=== PATIENT | male | born 1950 | race Caucasian/White ===

== ENCOUNTER 2018-05-13 10:49 | Inpatient (IN) | END 2018-05-15 12:40 | disposition home or self-care (01) | DRG 65 ==

== ENCOUNTER 2018-09-26 13:50 | Observation (INO) | payer SELFPAY ==
[~2018-09-26] VITALS: Ht 167.6 cm; Wt 67.0 kg
[~2018-09-26 13:50] MED LIST: ASPI-831 PO; ATOR-2 PO; LISI1TAB4 PO; WORK NOTE
[2018-09-26] MEDS ORDERED: ONDANSETRON 4 MG INJ IV PRN ×2 (16:30→18:30)
[2018-09-26] MEDS ORDERED: ACETAMINOPHEN 325 MG TAB PO PRN ×2 (16:30→18:30)
[2018-09-26] MEDS ORDERED: LISI-471 PO (16:44)
[2018-09-26] MEDS ORDERED: ATOR-2 PO (16:44)
[2018-09-26] MEDS ORDERED: HYDR25TA6 PO (16:44)
[2018-09-26] MEDS ORDERED: ASPI-817 PO (16:46)
--- NOTE | 2018-09-26 17:07 | ERD ---
ER Documentation Chief Complaint Chief Complaint Dizziness, L-sided weakness X 3 days HPI This is a 67-year-old male with a history of hypertension and high cholesterol and a previous cerebrovascular accident several years prior to arrival where he developed residual weakness of his left upper and lower extremity. However over the years the patient has had significant improvement of his weakness as he is now able to grasp objects with his left hand and ambulate without any difficulty. He does have a residual left-sided facial droop from his previous CVA according to his son. However 3 days prior to arrival his son indicates that he noticed he was very unsteady in his gait. The patient indicates that for the past 3 days he is also felt very dizzy and lightheaded but denies any syncope or near syncope episode. Indicated that the facial droop on the left had side had worsened. He is not complaining of a headache. He denied any chest pain. He had no shortness of breath at rest or exertion. His symptoms have not worsened but they have not improved and therefore he was brought to the emergency department to be further evaluated. ROS All systems reviewed and are negative except as per history of present illness. Medications Home Meds Active Scripts Atorvastatin* (Atorvastatin*) 80 Mg Tablet, 80 MG PO HS, #30 TAB Prov:REYNA HOOVER NP 05/15/18 Reported Medications Aspirin* (Aspirin* EC) 81 Mg Tablet.dr, 81 MG PO DAILY, TAB 09/26/18 Atorvastatin* (Atorvastatin*) 80 Mg Tablet, 80 MG PO QHS, #30 TAB 09/26/18 Lisinopril* (Lisinopril*) 20 Mg Tablet, 20 MG PO DAILY, #30 TAB 09/26/18 Hydrochlorothiazide* (Hydrochlorothiazide*) 25 Mg Tab, 25 MG PO DAILY, #30 TAB 09/26/18 Discontinued Reported Medications Lisinopril/Hydrochlorothiazide (Lisinopril-Hctz 10-12.5 mg Tab) 1 Each Tablet, 1 EACH PO DAILY, TAB 05/13/18 Discontinued Scripts [Work Note] No Conflict Check Please excuse Mr. Pillo dotson attending work from 05/13/2018 to 05/20/2018 due to his medical condition. Thank You Prov:REYNA HOOVER NP 05/15/18 Aspirin (Aspirin) 81 Mg Chew, 81 MG PO DAILY, #30 TAB Prov:REYNA HOOVER NP 05/15/18 Allergies Allergies: Coded Allergies: No Known Allergy (Unverified , 09/26/18) PMhx/Soc History of Surgery: No Anesthesia Reaction: No Hx Neurological Disorder: Yes (LEFT SIDED WEAKNESS/ SLIGHT LEFT FACIAL DROOP) Hx Respiratory Disorders: No Hx Cardiac Disorders: Yes (HTN) Hx Psychiatric Problems: No Hx Miscellaneous Medical Probl: Yes (HTN) Hx Alcohol Use: No Hx Substance Use: No Hx Tobacco Use: Yes Smoking Status: Former smoker Physical Exam Vitals Vital Signs Date Temp Pulse Resp B/P (MAP) Pulse Ox O2 O2 Flow FiO2 Time Delivery Rate 09/26/18 67 18 138/74 99 Room Air 15:23 (95) 09/26/18 Nasal 2 14:36 Cannula 09/26/18 97.7 67 18 154/81 99 13:55 (105) Physical Exam Constitutional:Well-developed. Well-nourished. HEENT:Normocephalic. Atraumatic.Pupils were equal round reactive to light. Moist mucous membranes.No tonsillar exudates. Left subconjunctival hemorrhage. Neck: No nuchal rigidity. No lymphadenopathy. No posterior cervical spine tenderness or step-offs. Respiratory: Not using accessory muscles of respiration.Lungs were clear to auscultation bilaterally. No rhonchi. No rales. No wheezing. Cardiovascular: Regular rate regular rhythm.No murmurs. No rubs were appreciated.S1, S2 normal. Distal pulses are palpable 2+ bilaterally. GI: Abdomen was soft. Nontender. Non Distended. No pulsatile abdominal masses or bruits. No rebound. No guarding. Bowel sounds were present and normal. Muscle skeletal: Full range of motion of both the upper and lower extremities bilaterally.Normal muscle tone.No assymetrical calf tenderness or swelling. Skin: No petechia, no purpura. No lesions on the palms or the soles of the feet. No maculopapular rash. NEURO: Patient was alert, awake, orientated x3.Left-sided facial droop. Gait observed and normal with no ataxia.Speech had regular rate and rhythm. No focal neurological deficits. No pronator drift. Romberg sign negative. Result Diagram: 09/26/18 1418 09/26/18 1418 Results 24 hrs Laboratory Tests Test 09/26/18 14:13 09/26/18 14:18 Urine Color YELLOW Urine Clarity CLEAR Urine pH 7.0 Urine Specific [place] 1.018 Urine Ketones NEGATIVE mg/dL Urine Nitrite NEGATIVE mg/dL Urine Bilirubin NEGATIVE mg/dL Urine Urobilinogen NEGATIVE mg/dL Urine Leukocyte Esterase NEGATIVE Josh/ul Urine Microscopic RBC 9 /HPF Urine Microscopic WBC 0 /HPF Urine Hemoglobin 2+ mg/dL Urine Glucose NEGATIVE mg/dL Urine Total Protein NEGATIVE mg/dl Urine Opiates Screen Negative Urine Barbiturates Negative Urine Amphetamines Screen Negative Urine Benzodiazepines Screen Negative Urine Cocaine Screen Negative Urine Cannabinoids Negative White Blood Count 9.6 10^3/ul Red Blood Count 4.18 10^6/ul Hemoglobin 12.2 g/dl Hematocrit 37.4 % Mean Corpuscular Volume 89.5 fl Mean Corpuscular Hemoglobin 29.2 pg Mean Corpuscular Hemoglobin Concent 32.6 g/dl Red Cell Distribution Width 13.4 % Platelet Count 319 10^3/UL Mean Platelet Volume 9.7 fl Immature Granulocytes % 0.300 % Neutrophils % 54.7 % Lymphocytes % 28.8 % Monocytes % 8.2 % Eosinophils % 7.6 % Basophils % 0.4 % Nucleated Red Blood Cells % 0.0 /100WBC Immature Granulocytes # 0.030 10^3/ul Neutrophils # 5.2 10^3/ul Lymphocytes # 2.8 10^3/ul Monocytes # 0.8 10^3/ul Eosinophils # 0.7 10^3/ul Basophils # 0.0 10^3/ul Nucleated Red Blood Cells # 0.0 10^3/ul Prothrombin Time 12.2 Sec Prothrombin Time Ratio 1.0 INR International Normalized Ratio 0.89 Activated Partial Thromboplast Time 28.2 Sec Sodium Level 143 mmol/L Potassium Level 3.9 mmol/L Chloride Level 99 mmol/L Carbon Dioxide Level 33 mmol/L Anion Gap 11 Blood Urea Nitrogen 32 mg/dl Creatinine 1.14 mg/dl Est Glomerular Filtrat Rate mL/min > 60 mL/min Glucose Level 129 mg/dl Hemoglobin A1c 5.8 % Calcium Level 9.6 mg/dl Total Bilirubin 0.2 mg/dl Direct Bilirubin 0.00 mg/dl Indirect Bilirubin 0.2 mg/dl Aspartate Amino Transf (AST/SGOT) 34 IU/L Alanine Aminotransferase (ALT/SGPT) 35 IU/L Alkaline Phosphatase 80 IU/L Creatine Kinase 105 IU/L Creatine Kinase Index 1.1 Creatinine Kinase MB (Mass) 1.16 ng/ml Troponin I < 0.012 ng/ml Total Protein 7.8 g/dl Albumin 4.4 g/dl Globulin 3.40 g/dl Albumin/Globulin Ratio 1.29 Triglycerides Level 111 mg/dl Cholesterol Level 146 mg/dl LDL Cholesterol, Calculated 70 mg/dl HDL Cholesterol 54 mg/dl Cholesterol/HDL Ratio 2.7 RATIO Current Medications Medications Dose Sig/Celestino Start Time Status Last (Trade) Ordered Route PRN Stop Time Admin Dose Reason Admin Ondansetron 4 mg ER BRIDGE 09/26/18 HCl (Zofran PRN IV 16:30 09/27/18 Inj) NAUSEA/VOMITI 16:29 NG 650 mg ER BRIDGE 09/26/18 Acetaminophen PRN PO 16:30 09/27/18 (Tylenol .MILD PAIN 16:29 Tab) 1-3 OR TEMP Procedures/MDM This patient was seen and evaluated by myself. The patient presented to the emergency department complaining of dizziness. My differential diagnosis included but was not limited to hypovolemia, myocardial infarction, pulmonary embolism, hypoglycemia, hypoxia, anemia, vasovagal episode, hypothyroidism, a nxiety, peripheral or central vertigo. The patient was placed on a court recording monitor, continuous pulse oximetry and IV access established by nursing staff. 12 Lead EKG tracing ordered and reviewed by myself showed: Normal sinus rhythm of 63 bpm and no arrhythmia. CT interval normal. QRS duration normal. No ST segment elevation No ST segment depression. No changes consistent with acute ischemia. I obtained a CT scan of the patient's head and there is no intracerebral hemorrhage mass-effect or midline shift. There is a chronic infarct posterior limb right internal capsule. Chest radiograph was performed there is no pneumonia or pneumothorax. The patient will be admitted for observation for further evaluation into his symptoms. The patient is not a TPA candidate given that his symptoms have been present for over 3 days. He will be admitted to the hospitalist. He will go to the telemetry service. Departure Diagnosis: Primary Impression: Dizziness Additional Impression: Facial droop Condition: BALJEET Armenta MD Sep 26, 2018 17:07
[2018-09-26 17:30] VITALS: BP 165/77; PULSE 60; RESP 20
[2018-09-26 18:28] VITALS: Ht 167.6 cm; Wt 67.0 kg
[2018-09-26] MEDS ORDERED: DOCUSATE SODIUM 100 MG CAP PO PRN (18:30)
[2018-09-26] MEDS ORDERED: HYDROCODONE/APAP (5/325) TAB PO PRN (18:30)
[2018-09-26] MEDS ORDERED: morphine 2 MG INJ IV PRN (18:30)
[2018-09-26] MEDS ORDERED: ZOLPIDEM 5 MG TAB PO PRN (18:30)
[2018-09-26] MEDS ORDERED: NACL 0.9% 3 ML SYG IV SCH (18:30)
[2018-09-26 20:08] VITALS: BP 136/63; PULSE 63; RESP 18
[2018-09-26] MEDS: ATORVASTATIN 80 MG TAB PO SCH (20:16)
[2018-09-27 02:00] VITALS: BP 129/61; PULSE 60; RESP 18
--- NOTE | 2018-09-27 05:02 | HP ---
Date/Time of Note Date/Time of Note DATE: 09/27/18 TIME: 04:55 Assessment/Plan VTE Prophylaxis Risk score (from [facility] [place])>0 risk: 5 SCD applied (from [facility] [place]): Yes Pharmacological prophylaxis: LMWH Lines/Catheters IV Catheter Type (from [facility]): Saline Lock Urinary Cath still in place: No Assessment/Plan Assessment/Plan 1. Rule out CVA -Patient was diagnosed with CVA 4 months ago -Head CT without acute findings -Follow-up MRI of the brain -Continue aspirin and statin -PT and speech/swallow eval -Consider neurology consult in a.m. 2. History of CVA, diagnosed 4 months ago: See #1 3. Hypertension: BP is in acceptable range 4. Dyslipidemia: Continue statin Result Diagram: 09/26/18 1418 09/26/18 1418 Results 24hrs Laboratory Tests Test 09/26/18 14:13 09/26/18 14:18 Urine Color YELLOW Urine Clarity CLEAR Urine pH 7.0 Urine Specific [place] 1.018 Urine Ketones NEGATIVE Urine Nitrite NEGATIVE Urine Bilirubin NEGATIVE Urine Urobilinogen NEGATIVE Urine Leukocyte Esterase NEGATIVE Urine Microscopic RBC 9 H Urine Microscopic WBC 0 Urine Hemoglobin 2+ H Urine Glucose NEGATIVE Urine Total Protein NEGATIVE Urine Opiates Screen Negative Urine Barbiturates Negative Urine Amphetamines Screen Negative Urine Benzodiazepines Screen Negative Urine Cocaine Screen Negative Urine Cannabinoids Negative White Blood Count 9.6 Red Blood Count 4.18 L Hemoglobin 12.2 L Hematocrit 37.4 L Mean Corpuscular Volume 89.5 Mean Corpuscular Hemoglobin 29.2 Mean Corpuscular Hemoglobin Concent 32.6 Red Cell Distribution Width 13.4 Platelet Count 319 Mean Platelet Volume 9.7 Immature Granulocytes % 0.300 Neutrophils % 54.7 Lymphocytes % 28.8 Monocytes % 8.2 Eosinophils % 7.6 H Basophils % 0.4 Nucleated Red Blood Cells % 0.0 Immature Granulocytes # 0.030 Neutrophils # 5.2 Lymphocytes # 2.8 Monocytes # 0.8 Eosinophils # 0.7 H Basophils # 0.0 Nucleated Red Blood Cells # 0.0 Prothrombin Time 12.2 Prothrombin Time Ratio 1.0 INR International Normalized Ratio 0.89 Activated Partial Thromboplast Time 28.2 Sodium Level 143 Potassium Level 3.9 Chloride Level 99 Carbon Dioxide Level 33 H Anion Gap 11 Blood Urea Nitrogen 32 H Creatinine 1.14 Est Glomerular Filtrat Rate mL/min > 60 Glucose Level 129 Hemoglobin A1c 5.8 Calcium Level 9.6 Total Bilirubin 0.2 Direct Bilirubin 0.00 Indirect Bilirubin 0.2 Aspartate Amino Transf (AST/SGOT) 34 Alanine Aminotransferase (ALT/SGPT) 35 Alkaline Phosphatase 80 Creatine Kinase 105 Creatine Kinase Index 1.1 Creatinine Kinase MB (Mass) 1.16 Troponin I < 0.012 Total Protein 7.8 Albumin 4.4 Globulin 3.40 H Albumin/Globulin Ratio 1.29 Triglycerides Level 111 Cholesterol Level 146 LDL Cholesterol, Calculated 70 HDL Cholesterol 54 Cholesterol/HDL Ratio 2.7 HPI/ROS Admit Date/Time Admit Date/Time Sep 26, 2018 at 16:06 Hx of Present Illness This is a 67-year-old male with a history of hypertension, dyslipidemia, Patient presents the ER complaining of lightheadedness/dizziness. He also reported left-sided weakness, but this seems chronic since last CVA. About 4 months ago, patient was diagnosed with CVA after he presented with left-sided weakness and left facial droop. Currently he denies facial droop or slurred speech. Also denied seizure-like activity. When he presented to ER, vitals were within acceptable range. Head CT without acute findings. Basic labs within acceptable range. PMH/Family/Social Past Medical History Medical History: other (See HPI) Medications Current Medications IV Flush (NS 3 ml) 3 ml PER PROTOCOL IV ; Start 09/26/18 at 18:30 Ondansetron HCl (Zofran Inj) 4 mg Q6H PRN IV NAUSEA/VOMITING; Start 09/26/18 at 18:30 Acetaminophen (Tylenol Tab) 650 mg Q6H PRN PO .PAIN 1-3 OR TEMP; Start 09/26/18 at 18:30 Acetaminophen/ Hydrocodone Bitart ([place] (5/325)) 1 tab Q6H PRN PO .MOD PAIN 4- 6; Start 09/26/18 at 18:30 Morphine Sulfate (morphine) 2 mg Q4H PRN IV .SEVERE PAIN 7-10; Start 09/26/18 at 18:30 Docusate Sodium (Colace) 100 mg Q12H PRN PO .CONSTIPATION; Start 09/26/18 at 18:30 Zolpidem Tartrate (Ambien) 5 mg QHS PRN PO .INSOMNIA; Start 09/26/18 at 18:30 Enoxaparin Sodium (Lovenox) 40 mg DAILY SC ; Start 09/27/18 at 09:00 Aspirin (Halfprin) 81 mg DAILY PO ; Start 09/27/18 at 09:00 Atorvastatin Calcium (Lipitor) 80 mg HS PO Last administered on 09/26/18at 20:16; Admin Dose 80 MG; Start 09/26/18 at 21:00 Hydrochlorothiazide (Hydrochlorothiazide) 25 mg DAILY PO ; Start 09/27/18 at 09:00 Lisinopril (Zestril) 20 mg DAILY PO ; Start 09/27/18 at 09:00 Coded Allergies: No Known Allergy (Unverified , 09/26/18) Past Surgical History Past Surgical Hx: other (See HPI) Family History Significant Family History: no pertinent family hx Social History Alcohol Use: none Smoking Status: Former smoker Drug Use: none Exam/Review of Systems Vital Signs Vitals Vital Signs Date Temp Pulse Resp B/P (MAP) Pulse Ox O2 O2 Flow FiO2 Time Delivery Rate 09/27/18 98.6 60 18 129/61 99 Room Air 02:00 (83) 09/26/18 2 14:36 Exam Constitutional: other (No acute distress) Head: normocephalic, atraumatic Eyes: PERRL Respiratory: clear to auscultation, normal air movement Cardiovascular: regular rate and rhythm, nl pulses Gastrointestinal: soft, non-tender Extremities: normal pulses Neurological: nl mental status, nl speech, nl strength BRENNEN PADILLA MD Sep 27, 2018 05:02
[2018-09-27 07:36] VITALS: BP 133/69; PULSE 50; RESP 20
[2018-09-27] MEDS: ASPIRIN (EC) 81 MG TAB PO SCH (08:47)
[2018-09-27] MEDS: LISINOPRIL 20 MG TAB PO SCH (08:48)
[2018-09-27] MEDS: HYDROCHLOROTHIAZIDE 25 MG TAB PO SCH (08:48)
[2018-09-27] MEDS: ENOXAPARIN 40 MG/0.4 ML SYG SC SCH (08:50)
[2018-09-27 13:52] VITALS: BP 114/62; PULSE 54; RESP 20
[2018-09-27] MEDS ORDERED: morphine LIQ (10 MG/5 ML) CUP PO PRN (15:30)
--- NOTE | 2018-09-27 17:51 | PN ---
Date/Time of Note Date/Time of Note DATE: 09/27/18 TIME: 17:49 Assessment/Plan VTE Prophylaxis Risk score (from Ns)>0 risk: 5 SCD applied (from Nsg): Yes Pharmacological prophylaxis: LMWH Lines/Catheters IV Catheter Type (from Nrs): Saline Lock Urinary Cath still in place: No Assessment/Plan Hospital Course SUBJECTIVE: Denies any complaints. OBJECTIVE: Physical Exam General: Adequately build 67 year-old male lying in bed in no apparent distress. HEENT: Normocephalic, atraumatic. Eyes: Anicteric sclerae, conjunctivae clear. ENT: Nasal septum midline, oral mucosa moist. Neck supple, no JVD noticed. Respiratory: Bilaterally clear breath sounds. No use of accessory muscles of respiration. No adventitious breath sounds. Cardiovascular: S1, S2 heard. No murmurs or gallops. Abdomen: Soft, nontender, and nondistended. Bowel sounds positive in all 4 quadrants. Genitourinary: Deferred. Extremities: No cyanosis, no clubbing, no edema. Peripheral pulses palpable. Neurologic: Cranial nerves II through XII grossly intact. The patient is awake, alert, and oriented. Skin: Normal skin turgor. No skin rashes. Labs & Vitals per chart ASSESSMENT & PLAN 67-year-old male with comorbidities including acute lacunar infarct of the right internal capsule in April 2018, 4 mm ACOM region aneurysm, dyslipidemia, hypertension, and tobacco use (Quit since April 2018). The patient came to the emergency room with chief complaint of left-sided weakness times 3 days. The patient was admitted to inpatient setting for further treatment and skyler luation. 1. Left-sided weakness. -Brain CT scan showing chronic infarct of the posterior limb of right internal capsule. -Pending brain MRI. -Continue aspirin and statins. 2. Hypertension. -On antihypertensives (left-sided weakness has been > 48 hours). 3. Dyslipidemia. -Continue statins. 4. Prediabetes -Hemoglobin A1c 5.9. -Monitor glycemic trends. 5. Fluids, electrolytes, and nutrition. -Low-cholesterol diet. 6. DVT prophylaxis -Subcutaneous Lovenox. 7. Plan. -Continue inpatient monitoring. -Await brain MRI. The patient was seen in collaboration with Dr. Mazariegos. Result Diagram: 09/27/18 0542 09/27/18 0542 Results 24hrs Laboratory Tests Test 09/27/18 05:42 White Blood Count 9.2 Red Blood Count 4.10 L Hemoglobin 11.8 L Hematocrit 36.4 L Mean Corpuscular Volume 88.8 Mean Corpuscular Hemoglobin 28.8 L Mean Corpuscular Hemoglobin Concent 32.4 Red Cell Distribution Width 13.6 Platelet Count 273 Mean Platelet Volume 10.1 Immature Granulocytes % 0.300 Neutrophils % 55.8 Lymphocytes % 26.4 Monocytes % 8.1 Eosinophils % 9.0 H Basophils % 0.4 Nucleated Red Blood Cells % 0.0 Immature Granulocytes # 0.030 Neutrophils # 5.1 Lymphocytes # 2.4 Monocytes # 0.7 Eosinophils # 0.8 H Basophils # 0.0 Nucleated Red Blood Cells # 0.0 Sodium Level 141 Potassium Level 3.9 Chloride Level 105 Carbon Dioxide Level 29 Anion Gap 7 Blood Urea Nitrogen 29 H Creatinine 0.98 Est Glomerular Filtrat Rate mL/min > 60 Glucose Level 98 Hemoglobin A1c 5.9 Calcium Level 9.3 Phosphorus Level 4.3 Magnesium Level 2.3 Triglycerides Level 90 Cholesterol Level 137 LDL Cholesterol, Calculated 71 HDL Cholesterol 48 Cholesterol/HDL Ratio 2.8 Exam/Review of Systems Exam Vitals Vital Signs Date Temp Pulse Resp B/P (MAP) Pulse Ox O2 O2 Flow FiO2 Time Delivery Rate 09/27/18 97.5 54 20 114/62 98 13:52 (79) 09/27/18 Room Air 02:00 09/26/18 2 14:36 Results Results 24hrs Laboratory Tests Test 09/27/18 05:42 White Blood Count 9.2 Red Blood Count 4.10 L Hemoglobin 11.8 L Hematocrit 36.4 L Mean Corpuscular Volume 88.8 Mean Corpuscular Hemoglobin 28.8 L Mean Corpuscular Hemoglobin Concent 32.4 Red Cell Distribution Width 13.6 Platelet Count 273 Mean Platelet Volume 10.1 Immature Granulocytes % 0.300 Neutrophils % 55.8 Lymphocytes % 26.4 Monocytes % 8.1 Eosinophils % 9.0 H Basophils % 0.4 Nucleated Red Blood Cells % 0.0 Immature Granulocytes # 0.030 Neutrophils # 5.1 Lymphocytes # 2.4 Monocytes # 0.7 Eosinophils # 0.8 H Basophils # 0.0 Nucleated Red Blood Cells # 0.0 Sodium Level 141 Potassium Level 3.9 Chloride Level 105 Carbon Dioxide Level 29 Anion Gap 7 Blood Urea Nitrogen 29 H Creatinine 0.98 Est Glomerular Filtrat Rate mL/min > 60 Glucose Level 98 Hemoglobin A1c 5.9 Calcium Level 9.3 Phosphorus Level 4.3 Magnesium Level 2.3 Triglycerides Level 90 Cholesterol Level 137 LDL Cholesterol, Calculated 71 HDL Cholesterol 48 Cholesterol/HDL Ratio 2.8 Medications Medication Current Medications IV Flush (NS 3 ml) 3 ml PER PROTOCOL IV ; Start 09/26/18 at 18:30 Ondansetron HCl (Zofran Inj) 4 mg Q6H PRN IV NAUSEA/VOMITING; Start 09/26/18 at 18:30 Acetaminophen (Tylenol Tab) 650 mg Q6H PRN PO .PAIN 1-3 OR TEMP; Start 09/26/18 at 18:30 Acetaminophen/ Hydrocodone Bitart ([place] (5/325)) 1 tab Q6H PRN PO .MOD PAIN 4- 6; Start 09/26/18 at 18:30 Docusate Sodium (Colace) 100 mg Q12H PRN PO .CONSTIPATION; Start 09/26/18 at 18:30 Zolpidem Tartrate (Ambien) 5 mg QHS PRN PO .INSOMNIA; Start 09/26/18 at 18:30 Enoxaparin Sodium (Lovenox) 40 mg DAILY SC Last administered on 09/27/18 08:50; Admin Dose 40 MG; Start 09/27/18 at 09:00 Aspirin (Halfprin) 81 mg DAILY PO Last administered on 09/27/18 08:47; Admin Dose 81 MG; Start 09/27/18 at 09:00 Atorvastatin Calcium (Lipitor) 80 mg HS PO Last administered on 09/26/18 20:16; Admin Dose 80 MG; Start 09/26/18 at 21:00 Hydrochlorothiazide (Hydrochlorothiazide) 25 mg DAILY PO Last administered on 09/27/18 08:48; Admin Dose 25 MG; Start 09/27/18 at 09:00 Lisinopril (Zestril) 20 mg DAILY PO Last administered on 09/27/18 08:48; Admin Dose 20 MG; Start 09/27/18 at 09:00 Morphine Sulfate (morphine) 6 mg Q4H PRN PO SEVERE PAIN LEVEL 7-10; Start 09/27/18 at 15:30 ARACELI MANRIQUEZ NP Sep 27, 2018 17:51
[2018-09-27 19:36] VITALS: BP 132/61; PULSE 55; RESP 18
[2018-09-27] MEDS: ATORVASTATIN 80 MG TAB PO SCH (20:59)
[2018-09-28 01:55] VITALS: BP 111/56; PULSE 55; RESP 18
[2018-09-28 07:24] VITALS: BP 129/64; PULSE 59; RESP 20
[2018-09-28] MEDS: ASPIRIN (EC) 81 MG TAB PO SCH (09:02)
[2018-09-28] MEDS: LISINOPRIL 20 MG TAB PO SCH (09:03)
[2018-09-28] MEDS: HYDROCHLOROTHIAZIDE 25 MG TAB PO SCH (09:04)
[2018-09-28] MEDS: ENOXAPARIN 40 MG/0.4 ML SYG SC SCH (09:08)
[2018-09-28] MEDS ORDERED: POTASSIUM CHLORIDE (SR) 20 MEQ TAB PO STA (10:12)
--- NOTE | 2018-09-28 10:18 | DS ---
Date/Time of Note Date/Time of Note DATE: 09/28/18 TIME: 10:16 Discharge Summary Admission/Discharge Info Admit Date/Time Sep 26, 2018 at 16:06 Discharge Date/Time Discharge Diagnosis 1. 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 2. Hypertension. 3. Dyslipidemia. 4. Prediabetes. Hemoglobin A1c 5.9. Patient Condition: Stable Procedures Brain CT IMPRESSION: No intracranial hemorrhage, mass or evidence of acute transcortical infarct. Chronic infarct posterior limb right internal capsule. Mild age-appropriate atrophy. Mild white matter disease compatible with chronic small vessel ischemia. Brain MRI IMPRESSION: 1. Mild diffuse atrophy. 2. Microangiopathic ischemic changes. 3. Old lacunar infarct posterior limb right internal capsule. 4. Mild mucosal thickening paranasal sinuses with minimal dependent air-fluid level right sphenoid sinus. Hx of Present Illness This is a 67-year-old male with comorbidities including acute lacunar infarct of the right internal capsule in April 2018, 4 mm ACOM region aneurysm, dyslipidemia, hypertension, and tobacco use (quit since April 2018). The patient came to the emergency room with chief complaint of left-sided weakness times 3 days. The patient was admitted to inpatient setting for further treatment and evaluation. Hospital Course The patient was admitted to inpatient setting. The patient's brain CT scan was negative for any acute stroke. The patient underwent a brain MRI that was also negative for any acute stroke. Meanwhile, the patient's left-sided weakness has improved significantly. The patient was seen and evaluated by speech therapy and physical therapy, who recommended no skilled therapy needs. The patient was ruled out for any underlying acute stroke. The patient was maintained on antihypertensives for his underlying hypertension. No permissive hypertension was provided since the patient's left-sided weakness started more than 48 hours before the patient was evaluated in the emergency room. The patient was maintained on aspirin and statins. The patient was noticed to have prediabetes with a hemoglobin A1c of 5.9. The patient's random blood sugars were within normal limits. The patient had a stable hospital course. The patient is stable to be discharged home, to be followed up with outpatient primary care provider. Discharge Instructions 1. Resume home medications. 2. Follow a low-cholesterol, low carbohydrate diet. 3. Resume activities as tolerated 4. Follow-up with your primary care physician in 2 weeks. If you do not have a primary care physician, please call Dr. Jeff Rolon's office. 5. Please go to the nearest emergency room if you have any chest pain, sudden onset of focal weakness, speech disturbances, or any other unusual signs/symptoms. The patient verbalized understanding of his discharge instructions. The patient was seen in collaboration with Dr. Mazariegos. Home Meds Active Scripts Atorvastatin* (Atorvastatin*) 80 Mg Tablet, 80 MG PO HS, #30 TAB Prov:REYNA HOOVER NP 05/15/18 Reported Medications Aspirin* (Aspirin* EC) 81 Mg Tablet.dr, 81 MG PO DAILY, TAB 09/26/18 Lisinopril* (Lisinopril*) 20 Mg Tablet, 20 MG PO DAILY, #30 TAB 09/26/18 Hydrochlorothiazide* (Hydrochlorothiazide*) 25 Mg Tab, 25 MG PO DAILY, #30 TAB 09/26/18 Discontinued Reported Medications Atorvastatin* (Atorvastatin*) 80 Mg Tablet, 80 MG PO QHS, #30 TAB 09/26/18 Lisinopril/Hydrochlorothiazide (Lisinopril-Hctz 10-12.5 mg Tab) 1 Each Tablet, 1 EACH PO DAILY, TAB 05/13/18 Discontinued Scripts [Work Note] No Conflict Check Please excuse Mr. Pillo dotson attending work from 05/13/2018 to 05/20/2018 due to his medical condition. Thank You Prov:REYNA HOOVER NP 05/15/18 Aspirin (Aspirin) 81 Mg Chew, 81 MG PO DAILY, #30 TAB Prov:REYNA HOOVER NP 05/15/18 Primary Care Provider Care Physician No Primary Time spent on discharge: > 30 minutes Pending Labs Laboratory Tests Test 09/28/18 04:31 White Blood Count 9.1 10^3/ul (4.8-10.8) Red Blood Count 3.98 10^6/ul (4.70-6.10) Hemoglobin 11.7 g/dl (14.0-18.0) Hematocrit 35.2 % (42.0-52.0) Mean Corpuscular Volume 88.4 fl (82.0-101.0) Mean Corpuscular Hemoglobin 29.4 pg (29.0-33.0) Mean Corpuscular Hemoglobin Concent 33.2 g/dl (32.0-37.0) Red Cell Distribution Width 13.4 % (11.5-14.5) Platelet Count 293 10^3/UL (140-415) Mean Platelet Volume 10.4 fl (7.4-10.4) Immature Granulocytes % 0.300 % (0.001-0.429) Neutrophils % 49.9 % (39.0-77.0) Lymphocytes % 30.8 % (15.0-51.0) Monocytes % 8.8 % (0.0-11.0) Eosinophils % 9.6 % (0.0-7.0) Basophils % 0.6 % (0.0-2.0) Nucleated Red Blood Cells % 0.0 /100WBC (0.0-0.0) Immature Granulocytes # 0.030 10^3/ul (0.0-0.031) Neutrophils # 4.5 10^3/ul (1.6-7.5) Lymphocytes # 2.8 10^3/ul (0.8-2.9) Monocytes # 0.8 10^3/ul (0.3-0.9) Eosinophils # 0.9 10^3/ul (0.0-0.5) Basophils # 0.1 10^3/ul (0.0-0.1) Nucleated Red Blood Cells # 0.0 10^3/ul (0.0-0.0) Sodium Level 140 mmol/L (135-144) Potassium Level 3.4 mmol/L (3.5-5.1) Chloride Level 101 mmol/L (97-110) Carbon Dioxide Level 28 mmol/L (21-31) Anion Gap 11 (5-13) Blood Urea Nitrogen 28 mg/dl (7-20) Creatinine 1.07 mg/dl (0.61-1.24) Est Glomerular Filtrat Rate mL/min > 60 mL/min (>60) Glucose Level 107 mg/dl (70-220) Calcium Level 9.5 mg/dl (8.4-10.2) Phosphorus Level 4.9 mg/dl (2.5-4.9) Magnesium Level 2.2 mg/dl (1.7-2.5) ARACELI MANRIQUEZ NP Sep 28, 2018 10:17
--- NOTE | 2018-09-28 10:23 | PDOCDIS ---
Discharge Instructions DIAGNOSIS Discharge Diagnosis 1. 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 2. Hypertension. 3. Dyslipidemia. 4. Prediabetes. Hemoglobin A1c 5.9. CONDITION [id number] Patient Condition: [id number] Stable HOME CARE INSTRUCTIONS: [id number] Diet Instructions: [id number] Low Fat /Cholesterol FOLLOW UP/APPOINTMENTS Follow-up Plan Jeff Rolon MD Specialty: Internal Medicine Office Address: [address] [place] [address] Office OTHER ORDERS: Other Orders: 1. Resume home medications. 2. Follow a low-cholesterol, low carbohydrate diet. 3. Resume activities as tolerated 4. Follow-up with your primary care physician in 2 weeks. If you do not have a primary care physician, please call Dr. Jeff Rolon's office. 5. Please go to the nearest emergency room if you have any chest pain, sudden onset of focal weakness, speech disturbances, or any other unusual signs/symptoms. ARACELI MANRIQUEZ NP Sep 28, 2018 10:23
[2018-09-28 13:46] VITALS: BP 133/69; PULSE 57; RESP 20
== END 2018-09-28 14:15 | disposition home or self-care (01) ==
LOC: E/R 13:50 → 2NE 16:06
PROVIDERS: ADMIT Internal Medicine; ATTEND Internal Medicine
DX: I69.354 Hemiplegia and hemiparesis following cerebral infarction affecting left non-dominant side (principal); I10 Essential (primary) hypertension; E78.00 Pure hypercholesterolemia, unspecified; E78.5 Hyperlipidemia, unspecified; R73.03 Prediabetes; Z79.82 Long term (current) use of aspirin; Z87.891 Personal history of nicotine dependence
CPT/HCPCS: 36415; 70450; 70551; 71045; 80048; 80053; 80061; 80307; 81001; 82550; 82553; 83036; 83735; 84100; 84484; 85025; 85610; 85730; 92610; 93005; 97162; 99285; G0378; J1650